=== PATIENT | female | born 1985 | race Caucasian/White ===

== ENCOUNTER 2023-04-08 08:54 | Outpatient (REF) | payer OTHER, SELFPAY ==
--- NOTE | ~2023-04-08 | US_ITS ---
EXAMINATION: US DIAGNOSTIC ULTRASOUND BREAST, LEFT CLINICAL INFORMATION: 38-year-old with recent left breast symptoms, including transient rash, tenderness, and fullness. Symptoms resolving. No prior breast imaging. No known family history breast cancer. COMPARISON: None (current study represents initial baseline exam). TECHNIQUE: Ultrasound left breast is targeted to the areas of clinical concern. Grayscale imaging and color Doppler are performed without and with harmonics. Patient is able to point to the areas of concern at time of imaging. FINDINGS: There is no focal suspicious finding. There is no cystic or solid mass, architectural abnormality, or focal duct ectasia. No skin thickening or edema tracking in soft tissue planes. Results are discussed with the patient at time of visit. At this time, patient declines additional imaging with mammography and will return if symptoms persist. US/US breast LT limited IMPRESSION: - Normal study. ASSESSMENT: BI-RADS 1: Negative RECOMMENDATION: - Patient should be managed based on the clinical impression. If clinically indicated, further evaluation may be considered with diagnostic mammography and/or surgical consult. - Otherwise, routine annual screening mammography, beginning age 40 or earlier as clinical risk factors warrant. This patient's information was entered into a reminder system with a target due date for their next mammogram.
== END 2023-04-08 08:55 | disposition home or self-care (01) ==
LOC: HO.MAMMO 08:54
PROVIDERS: PCP Nurse Practitioner Family; Visit Provider Nurse Practitioner Family
DX: N63.21 Unspecified lump in the left breast, upper outer quadrant (principal)
CPT/HCPCS: 76642